=== PATIENT | male | born 1940 | race Caucasian/White ===

== ENCOUNTER → 2017-11-27 | Outpatient (CLI) | payer MEDICARE, OTHER | END | disposition home or self-care (01) | LOC: PETCFH 07:26 | PROVIDERS: ATTEND Surgery | DX: C78.00 Secondary malignant neoplasm of unspecified lung (principal) | CPT/HCPCS: 78815; A9552 ==

== ENCOUNTER 2017-11-30 06:09 | Day surgery (SDC) | payer MEDICARE, OTHER ==
[~2017-11-30] VITALS: Ht 181.6 cm; Wt 78.0 kg
[2017-11-30 07:10] VITALS: BP 112/69
[2017-11-30] MEDS ORDERED: SODIUM CHLORIDE 0.9% 1,000 ML IV SCH (07:34)
[2017-11-30] MEDS ORDERED: MIDAZOLAM 1 MG/ML, 5ML ONE (07:56)
[2017-11-30] MEDS ORDERED: FENTANYL PF 100 MCG/2ML ONE (07:56)
[2017-11-30] MEDS ORDERED: NALOXONE 1 MG/ML, 2ML ONE (07:56)
[2017-11-30] MEDS ORDERED: FLUMAZENIL 0.1 MG/1 ML, 5ML ONE (07:56)
== END 2017-11-30 11:00 | disposition home or self-care (01) ==
LOC: RAD 06:09
PROVIDERS: ATTEND Surgery
DX: C34.91 Malignant neoplasm of unspecified part of right bronchus or lung (principal); K21.9 Gastro-esophageal reflux disease without esophagitis; E78.00 Pure hypercholesterolemia, unspecified; I10 Essential (primary) hypertension; G43.909 Migraine, unspecified, not intractable, without status migrainosus; Z86.73 Personal history of transient ischemic attack (TIA), and cerebral infarction without residual deficits; Z90.49 Acquired absence of other specified parts of digestive tract; Z95.5 Presence of coronary angioplasty implant and graft; Z98.890 Other specified postprocedural states; Z79.82 Long term (current) use of aspirin
CPT/HCPCS: 32405; 71045; 77012; 88305; 99156; J2250; J3010; J7030; 99157; J2310